=== PATIENT | male | born 1980 | race African-American/Black ===

== ENCOUNTER 2019-05-16 16:30 | Emergency (ER) | payer OTHER ==
[~2019-05-16] VITALS: Ht 180.3 cm; Wt 113.4 kg
[2019-05-16 16:59] LABS: BASOPHILS 0.4 % (0.0-2.0); HEMATOCRIT 45.3 % (42.0-52.0); HEMOGLOBIN 15.6 gm/dL (14.0-18.0); LYMPHOCYTES 6.4 % (24.0-44.0); MCH 30.7 pg (26.0-34.0); MCHC 34.5 g/dL (28.0-37.0); MCV 89.2 fL (80.0-100.0); MONOCYTES 6.9 % (1.0-8.0); PLATELET COUNT 126 thou/uL (150-400); POLYS 86.3 % (36.0-66.0); RBC 5.08 mil/uL (4.50-6.00); RDW 13.3 % (10.5-14.5); WBC 10.4 thou/uL (4.0-11.0)
[2019-05-16 17:15] LABS: CALCIUM 9.7 mg/dL (8.5-10.1); CREATININE 1.3 mg/dL (0.7-1.3)
[2019-05-16 17:22] LABS: ALBUMIN 4.1 g/dL (3.4-5.0); TOTAL BILIRUBIN 1.1 mg/dL (<0.1-1.0); TOTAL PROTEIN 7.8 g/dL (6.4-8.2)
[2019-05-16] MEDS ORDERED: METFORMIN HCL500 MG PO (17:50)
[2019-05-16] MEDS ORDERED: CLEOCIN HCL150 MG PO (18:40)
[2019-05-16] MEDS ORDERED: IBUPROFEN 600600 M1 PO (18:40)
[2019-05-16 18:51] LABS: URINE BILIRUBIN NEGATIVE (Negative); URINE BLOOD NEGATIVE (Negative); URINE CLARITY CLEAR; URINE COLOR YELLOW; URINE GLUCOSE-RANDOM* NEGATIVE (Negative); URINE KETONES NEGATIVE (Negative); URINE LEUKOCYTES NEGATIVE (Negative); URINE NITRITE NEGATIVE (Negative); URINE PROTEIN (DIPSTICK) NEGATIVE (Negative); URINE UROBILINOGEN 0.2 E.U./dl (0.2-1.0)
[2019-05-16 20:58] VITALS: BP 117/69
== END 2019-05-16 21:00 | disposition home or self-care (01) ==
LOC: ER 16:30
PROVIDERS: Emergency Medicine
DX: L03.115 Cellulitis of right lower limb (principal); E11.9 Type 2 diabetes mellitus without complications; I10 Essential (primary) hypertension